=== PATIENT | female | born 1935 | race Caucasian/White ===

== ENCOUNTER 2018-03-07 09:47 | Emergency (ER) | payer OTHER ==
[2018-03-07] MEDS ORDERED: NA CHLORIDE 0.9% 1,000 ML ONE (10:31)
[2018-03-07 10:40] LABS: Absolute Lymphocytes (CBC) 1.4 K/uL (0.7-4.9); Absolute Monocytes 0.9 K/uL (0.1-1.3); Basophils % 0.3 % (0-1.3); Hematocrit 38.2 % (36.0-45.0); Lymphocytes % 19.1 % (15.3-44.8); MCH 29.6 pg (27.0-35.0); MCV 87.7 fL (80-100); MPV 9.4 fL (7.6-11.3); Monocytes % 12.6 % (3.3-12.3); RBC Red Blood Cell Count 4.36 M/uL (3.86-4.86)
[2018-03-07 10:56] LABS: ALT/SGPT 15 U/L (12-78); AST/SGOT 15 U/L (15-37); Albumin 3.1 g/dL (3.4-5.0); Alkaline Phosphatase 77 U/L (45-117); BUN Blood Urea Nitrogen 7 mg/dL (7-18); Bicarbonate 29 mmol/L (21-32); Bilirubin Total 0.9 mg/dL (0.2-1.0); Creatine Phosphokinase 42 U/L (26-192); Glucose Level 97 mg/dL (74-106); Magnesium 2.1 mg/dL (1.8-2.4); Potassium 3.6 mmol/L (3.5-5.1); Protein, Total 7.4 g/dL (6.4-8.2); Sodium Level 135 mmol/L (136-145)
--- NOTE | 2018-03-07 11:29 | ER ---
Nurse's Notes [facility] Name: Griselda Reyes Age: 82 yrs Sex: Female : 1935 Arrival Date: 03/07/2018 Time: 09:52 Bed 13 Private MD: Diagnosis: Dehydration Presentation: 03/07 09:56 Presenting complaint: Patient states: Bilateral lower extremity pain, that started sg about 2 weeks ago, I came down with a virus or something and i just laid up in the bed, was feeling a little better, but Soheila had decreased appetite and just dont feel like my normal self. Reports the pain is most severe this morning in the legs and having right arm pain from a fall about 2 months ago. Transition of care: patient was not received from another setting of care. Onset of symptoms was March 07, 2018. Risk Assessment: Do you want to hurt yourself or someone else? Patient reports no desire to harm self or others. Initial Sepsis Screen: Does the patient meet any 2 criteria? No. Patient's initial sepsis screen is negative. Does the patient have a suspected source of infection? No. Patient's initial sepsis screen is negative. Care prior to arrival: None. 09:56 Method Of Arrival: Ambulatory sg 09:56 Acuity: ASHLY 3 sg Historical: - Allergies: 09:56 No Known Allergies; sg - Home Meds: 09:56 levothyroxine 75 mcg tab 1 tab once daily [Active]; sg - PMHx: 09:56 High Cholesterol; Hypothyroidism; sg - PSHx: 09:56 Hysterectomy; sg - Immunization history:: Adult Immunizations up to date. - Social history:: Smoking status: Patient/guardian denies using tobacco. - Ebola Screening: : Patient negative for fever greater than or equal to 101.5 degrees Fahrenheit, and additional compatible Ebola Virus Disease symptoms Patient denies exposure to infectious person Patient denies travel to an Ebola-affected area in the 21 days before illness onset No symptoms or risks identified at this time. Screenin:11 Abuse screen: Denies threats or abuse. Denies injuries from another. Nutritional aj screening: No deficits noted. Tuberculosis screening: No symptoms or risk factors identified. Fall Risk None identified. Assessment: 10:11 General: Appears in no apparent distress. comfortable, Behavior is calm, cooperative, aj appropriate for age. Pain: Complains of pain in right arm, left arm, right leg and left leg. Neuro: Level of Consciousness is awake, alert, obeys commands, Oriented to person, place, time, situation, Appropriate for age. Respiratory: Airway is patent Respiratory effort is even, unlabored, Respiratory pattern is regular, symmetrical. GI: Reports anorexia. Derm: Skin is intact, is healthy with good turgor, Skin is pink, warm \T\ dry. normal. Musculoskeletal: Reports pain in right arm, left arm, right leg and left leg. Vital Signs: 09:58 BP 182 / 94; Pulse 82; Resp 17; Temp 99.4; Pulse Ox 97% on R/A; Weight 58.97 kg (R); sg Height 5 ft. 4 in. (162.56 cm) (R); 11:27 BP 158 / 77; Pulse 64; Resp 18; Pulse Ox 99% on R/A; aj 09:58 Body Mass Index 22.31 (58.97 kg, 162.56 cm) ED Course: 09:52 Patient arrived in ED. sg 09:52 Arm band placed on. sg 09:58 Triage completed. sg 10:04 Seun Allen PA is PHCP. jr8 10:04 Reji Urena MD is Attending Physician. jr8 10:11 Patient has correct armband on for positive identification. aj 10:11 Inserted saline lock: 20 gauge in right forearm, using aseptic technique. Blood aj collected. 10:25 Elissa Garcia, RN is Primary Nurse. aj 11:27 No provider procedures requiring assistance completed. aj 12:02 IV discontinued, intact, bleeding controlled, No redness/swelling at site. Pressure aj dressing applied. Administered Medications: 10:41 Drug: NS 0.9% 1000 ml Route: IV; Rate: 1000 ml; Site: right forearm; aj 12:03 Follow up: Response: No adverse reaction; IV Status: Completed infusion; IV Intake: aj 1000ml Intake: 12:03 IV: 1000ml; Total: 1000ml. aj Outcome: 11:28 Discharge ordered by . jr8 12:02 Discharged to home ambulatory. aj 12:02 Condition: good 12:02 Discharge instructions given to patient, Instructed on discharge instructions, follow up and referral plans. Demonstrated understanding of instructions, follow-up care. 12:04 Patient left the ED. aj Signatures: Junito Gamboa RN RN Elissa Katz RN RN Seun Moreno PA PA jr8
--- NOTE | 2018-03-07 11:29 | EDPHYS ---
Physician Documentation [facility] Name: Griselda Reyes Age: 82 yrs Sex: Female : 1935 Arrival Date: 03/07/2018 Time: 09:52 Bed 13 Private MD: ED Physician Reji Urena HPI: 03/07 10:54 This 82 yrs old Female presents to ER via Ambulatory with complaints of Leg jr8 Pain. 10:54 The complaints affect the both right and left leg. Onset: The symptoms/episode jr8 began/occurred gradually, 2 day(s) ago. Modifying factors: The symptoms are alleviated by nothing. the symptoms are aggravated by nothing. Associated signs and symptoms: The patient has no apparent associated signs or symptoms. Severity of symptoms: At their worst the symptoms were moderate, in the emergency department the symptoms have resolved. The patient has not experienced similar symptoms in the past. The patient has not recently seen a physician. Patient stated that she had viral like syndrome last week. Most of the symptoms have resolved. Still having headache on/off and bilateral lower extremity cramping and soreness. Historical: - Allergies: 09:56 No Known Allergies; sg - Home Meds: 09:56 levothyroxine 75 mcg tab 1 tab once daily [Active]; sg - PMHx: 09:56 High Cholesterol; Hypothyroidism; sg - PSHx: 09:56 Hysterectomy; sg - Immunization history:: Adult Immunizations up to date. - Social history:: Smoking status: Patient/guardian denies using tobacco. - Ebola Screening: : Patient negative for fever greater than or equal to 101.5 degrees Fahrenheit, and additional compatible Ebola Virus Disease symptoms Patient denies exposure to infectious person Patient denies travel to an Ebola-affected area in the 21 days before illness onset No symptoms or risks identified at this time. ROS: 10:54 Eyes: Negative for injury, pain, redness, and discharge, ENT: Negative for injury, jr8 pain, and discharge, Neck: Negative for injury, pain, and swelling, Cardiovascular: Negative for chest pain, palpitations, and edema, Respiratory: Negative for shortness of breath, cough, wheezing, and pleuritic chest pain, Abdomen/GI: Negative for abdominal pain, nausea, vomiting, diarrhea, and constipation, Back: Negative for injury and pain, Skin: Negative for injury, rash, and discoloration, Neuro: Negative for headache, weakness, numbness, tingling, and seizure. 10:54 MS/extremity: Positive for pain, of the left leg and right leg. Exam: 10:54 Eyes: Pupils equal round and reactive to light, extra-ocular motions intact. Lids and jr8 lashes normal. Conjunctiva and sclera are non-icteric and not injected. Cornea within normal limits. Periorbital areas with no swelling, redness, or edema. ENT: Nares patent. No nasal discharge, no septal abnormalities noted. Tympanic membranes are normal and external auditory canals are clear. Oropharynx with no redness, swelling, or masses, exudates, or evidence of obstruction, uvula midline. Mucous membranes moist. Neck: Trachea midline, no thyromegaly or masses palpated, and no cervical lymphadenopathy. Supple, full range of motion without nuchal rigidity, or vertebral point tenderness. No Meningismus. Cardiovascular: Regular rate and rhythm with a normal S1 and S2. No gallops, murmurs, or rubs. Normal PMI, no JVD. No pulse deficits. Respiratory: Lungs have equal breath sounds bilaterally, clear to auscultation and percussion. No rales, rhonchi or wheezes noted. No increased work of breathing, no retractions or nasal flaring. Abdomen/GI: Soft, non-tender, with normal bowel sounds. No distension or tympany. No guarding or rebound. No evidence of tenderness throughout. Back: No spinal tenderness. No costovertebral tenderness. Full range of motion. Skin: Warm, dry with normal turgor. Normal color with no rashes, no lesions, and no evidence of cellulitis. MS/ Extremity: Pulses equal, no cyanosis. Neurovascular intact. Full, normal range of motion. Neuro: Awake and alert, GCS 15, oriented to person, place, time, and situation. Cranial nerves II-XII grossly intact. Motor strength 5/5 in all extremities. Sensory grossly intact. Cerebellar exam normal. Normal gait. Vital Signs: 09:58 BP 182 / 94; Pulse 82; Resp 17; Temp 99.4; Pulse Ox 97% on R/A; Weight 58.97 kg (R); sg Height 5 ft. 4 in. (162.56 cm) (R); 11:27 BP 158 / 77; Pulse 64; Resp 18; Pulse Ox 99% on R/A; aj 09:58 Body Mass Index 22.31 (58.97 kg, 162.56 cm) sg MDM: 10:05 Patient medically screened. [facility] 11:25 Data reviewed: vital signs, nurses notes, lab test result(s), and as a result, I will jr8 discharge patient. Data interpreted: Pulse oximetry: on room air is 97 %. Interpretation: normal. Counseling: I had a detailed discussion with the patient and/or guardian regarding: the historical points, exam findings, and any diagnostic results supporting the discharge/admit diagnosis, the need for outpatient follow up, a family practitioner, to return to the emergency department if symptoms worsen or persist or if there are any questions or concerns that arise at home. Response to treatment: the patient's symptoms have markedly improved after treatment, patient is well hydrated. and as a result, I will discharge patient. 03/07 10:22 Order name: CBC with Diff [facility] 03/07 10:22 Order name: CMP; Complete Time: 10:57 [facility] 03/07 10:22 Order name: Magnesium; Complete Time: 10:57 [facility] 03/07 10:22 Order name: CPK; Complete Time: 10:57 [facility] 03/07 10:23 Order name: CBC with Automated Diff; Complete Time: 10:57 [facility] 03/07 11:20 Order name: Urine Dipstick--Ancillary (enter results) 03/07 10:22 Order name: IV; Complete Time: 10:26 [facility] Administered Medications: 10:41 Drug: NS 0.9% 1000 ml Route: IV; Rate: 1000 ml; Site: right forearm; aj 12:03 Follow up: Response: No adverse reaction; IV Status: Completed infusion; IV Intake: aj 1000ml Disposition: 12:13 Co-signature as Attending Physician, Reji Urena MD. rn Disposition: 03/07/18 11:28 Discharged to Home. Impression: Dehydration. - Condition is Stable. - Discharge Instructions: Dehydration, Adult. - Medication Reconciliation Form, Thank You Letter, Antibiotic Education, Prescription Opioid Use form. - Follow up: Private Physician; When: 2 - 3 days; Reason: Recheck today's complaints, Continuance of care, Re-evaluation by your physician. - Problem is new. - Symptoms have improved. Signatures: Dispatcher [employer] [facility] Junito Gamboa RN Elissa Crowder RN RN aj Nieto, Roman, MD MD rn Roszak, Josh, PA PA jr8 Corrections: (The following items were deleted from the chart) 12:04 11:28 03/07/2018 11:28 Discharged to Home. Impression: Dehydration. Condition is aj Stable. Forms are Medication Reconciliation Form, Thank You Letter, Antibiotic Education, Prescription Opioid Use. Follow up: Private Physician; When: 2 - 3 days; Reason: Recheck today's complaints, Continuance of care, Re-evaluation by your physician. Problem is new. Symptoms have improved. jr8
[2018-03-07 12:13] LABS: Urine Blood TRACE (NEG); Urine Glucose NEGATIVE (NEG); Urine Protein NEGATIVE (NEG)
== END 2018-03-07 12:04 | disposition home or self-care (01) ==
LOC: ER 09:47
DX: E86.0 Dehydration (principal); E03.9 Hypothyroidism, unspecified; E78.00 Pure hypercholesterolemia, unspecified
CPT/HCPCS: 36415; 80053; 81003; 82550; 83735; 85025; 96360; 99283; J7030